=== PATIENT | female | born 2000 | race Caucasian/White ===

== ENCOUNTER 2024-01-23 18:24 | Emergency (ER) | payer BC ==
[~2024-01-23] VITALS: Ht 167.6 cm; Wt 59.0 kg
[2024-01-23 18:31] VITALS: BP_SYST 154; PULSE 86; RESP 18; TEMP 98.3; O2SAT 98
[2024-01-23 21:57] LABS: BASOPHILS # (AUTO) 0.1 K/uL (0.0-0.2); EOSINOPHILS % (AUTO) 0.5 % (0.0-4.0); HEMOGLOBIN 12.8 g/dL (12.0-16.0); LYMPHOCYTES % (AUTO) 33.7 % (20.5-51.5); MEAN CORPUSCULAR HEMOGLOBIN 30 pg (27-31); MEAN CORPUSCULAR HGB CONC 35 % (32-36); MEAN CORPUSCULAR VOLUME 85 fL (79.0-98.0); MONOCYTES # (AUTO) 0.5 K/uL (0.0-1.0); MONOCYTES % (AUTO) 5.3 % (1.7-9.3); NEUTROPHILS # (AUTO) 5.4 K/uL (1.8-7.7); NEUTROPHILS % (AUTO) 59.5 % (40.0-70.0); PLATELET COUNT (AUTO) 255 K/uL (130-430); RED BLOOD CELL COUNT(AUTO) 4.34 MIL/uL (4.2-6.2); RED CELL DISTRIBUTION WIDTH 12.2 % (9.0-15.0)
[2024-01-23 22:55] LABS: ANION GAP 11 (5-15); CALCIUM 8.9 mg/dL (8.4-11.0); CARBON DIOXIDE 28 mmol/L (23-29); CHLORIDE 103 mmol/L (98-107); CREATININE 0.77 mg/dL (0.55-1.30); GFR AFRICAN AMERICAN 121 mL/min (>90); GLUCOSE 87 mg/dL (74-106); SODIUM SERUM 142 mmol/L (136-145); THYROID STIMULATING HORMONE 1.17 uIu/mL (0.34-4.82); UREA NITROGEN, BLOOD 7 mg/dL (8-21)
[2024-01-23 22:58] LABS: GFR NON AFRICAN-AMERICAN 100 mL/min (>90)
[2024-01-24 00:02] LABS: BARBITURATE, URINE NEGATIVE (NEG <=200); BENZODIAZEPINE, URINE NEGATIVE (NEG <=150); CANNABINOID, URINE NEGATIVE (NEG <=50); COCAINE, URINE NEGATIVE (NEG <=150); METHAMPHETAMINES SCREEN,URINE NEGATIVE (NEG <=500); OPIATE, URINE NEGATIVE (NEG <=100); PHENCYCLIDINE SCREEN,URINE NEGATIVE (NEG <=25); UR TRICYCLIC ANTIDEPRESSANTS NEGATIVE (NEG <=300); URINE AMPHETAMINE NEGATIVE (NEG <=500); URINE METHADONE NEGATIVE (NEG <=200); URINE OXYCODONE SCREEN NEGATIVE (NEG <=100)
[2024-01-24 00:24] VITALS: BP_SYST 124; PULSE 83; RESP 18; TEMP 98.6; O2SAT 97
== END 2024-01-24 00:29 | disposition home or self-care (01) ==
LOC: SED 18:24
DX: R00.0 Tachycardia, unspecified (principal)
CPT/HCPCS: 36415; 80048; 80307; 84443; 84484; 85025; 93005; 99284